=== PATIENT | female | born 1985 | race Caucasian/White ===

== ENCOUNTER → 2018-01-27 | Day surgery (SDC) | payer OTHER ==
[~2018-01-27] MED LIST: ACETAMINOPHEN 1000 MG/100 ML 100 ML IV ONE; APREPITANT 40 MG CAP ONE; LACTATED RINGER'S 1000 ML INJ 1,000 ML ONE; MIDAZOLAM HCL 2 MG/2 ML VIAL ONE; ONDANSETRON HCL 4 MG/2 ML VIAL IV PUSH ONE; PROPOFOL 200 MG/20 ML AMP IV ONE; ceFAZolin INJ 1,000 MG VIAL ONE
--- NOTE | 2018-02-08 19:53 | MP ---
cc: Bianca Arrieta MD DATE OF OPERATION: 01/27/2018 PREOPERATIVE DIAGNOSIS: Missed . POSTOPERATIVE DIAGNOSIS: Missed . PROCEDURE: Sharp and suction curettage. ANESTHESIA: General. SURGEON: Bianca Arrieta MD FINDINGS: Products of conception. DESCRIPTION OF PROCEDURE: The patient was counseled on the option of waiting for natural spontaneous miscarriage versus D and C and decided on the latter. She was Rh positive. She was taken to the same-day surgery and in holding, her permit was reviewed. She was Rh positive. She was taken to the back, placed under general endotracheal anesthesia in the dorsal lithotomy position. She was prepped and draped in the usual sterile fashion. Timeout was performed. She was given 1 gm Ancef. Examination under anesthesia was performed. The cervix was grasped with a tenaculum and was dilated to allow the placement of a size 8 suction curettage. Sharp and suction curettage was then performed to remove the products of conception gently but thoroughly and then the instrumentation was removed and a repeat bimanual exam was performed. There was no further bleeding. She was placed in dorsal supine position, awoken and taken to the recovery room in stable condition. Bianca Arrieta MD PPC/SB , 07:29 PM , 07:52 PM
== END | disposition home or self-care (01) ==
LOC: ESDC 10:29
PROVIDERS: ATTEND Obstetrics & Gynecology
DX: O02.1 Missed abortion (principal)
CPT/HCPCS: 01965; 59820; 88305; J0131; J0690; J2250; J2405; J3010; J7120; J8501